=== PATIENT | female | born 1980 | race Caucasian/White ===

== ENCOUNTER 2018-08-24 13:07 | Emergency (ER) | payer OTHER, SELFPAY ==
[2018-08-24 13:09] VITALS: BP 165/103; PULSE 86; RESP 15; TEMP 36.2; O2SAT 99; BMI 31.4
[2018-08-24 14:12] LABS: Mucous, Urine 0 SEEN /hpf (<or=2+); Red Blood Cells-Urine 0 SEEN /hpf (0-5); White Blood Cells 0 SEEN /hpf (0-5)
[2018-08-24 14:14] LABS: Color, Urine Yellow (Yellow); Glucose, Dipstick Normal (Normal); Ketone-Dipstick Negative (Negative); Leukocyte Esterase-Dipstick Negative /ul (Negative); Nitrite-Dipstick Negative (Negative); Occult Blood-Urine Negative /ul (Negative); Protein-Dipstick Negative (Negative); Urine Bilirubin Dipstick Negative (Negative); Urine Clarity Clear (Clear); Urine Urobilinogen Normal (Normal)
[2018-08-24 14:17] LABS: Internal QC Validated? YES +Cl - CLEAR BKGD; Pregnancy, Urine Negative Negative
[2018-08-24 14:18] LABS: Bacteria RARE /hpf (None Seen); Squamous Epithelial Cells - UA 0-5 SEEN /hpf (5-10)
[2018-08-24 15:04] VITALS: BP 169/103
--- NOTE | 2018-08-24 15:38 | CT_ITS ---
STUDY: CT ABDOMEN AND PELVIS WITH CONTRAST REASON FOR EXAM: Female, 38 years old. Lower abdominal spasms when urinating RADIATION DOSAGE (If Supplied By Facility): CTDIvol = ( 15.3 ) mGy, DLP = ( 1139.03 ) mGycm TECHNIQUE: Transaxial images were obtained from the dome of the diaphragm to the symphysis pubis without oral contrast. 100CC ml of Isovue 300 contrast was administered. Sagittal and coronal images were reconstructed. Individualized dose optimization techniques were used for this CT. COMPARISON: None. FINDINGS: The visualized lung bases are unremarkable. The visualized portions of the heart are within normal limits. Normal liver. Normal gallbladder and extrahepatic biliary system. Normal spleen. Normal pancreas. Normal bilateral adrenal glands. Normal right kidney. Normal left kidney. Normal visualized stomach. Normal small intestine. Normal colon. There are surgical clips in the region of the appendix consistent with a prior appendectomy. Normal abdominal aorta. Normal inferior vena cava. Normal retroperitoneum. Normal urinary bladder. The uterus appears within normal limits. There is a 2.1 x 3.1 cm right ovarian cyst. A small amount of free fluid is seen in the deep pelvis. Normal abdominal wall. Normal osseous structures. CT/Abdomen/Pelvis W IV Cont ONLY IMPRESSION: 1. Surgical clips seen in the region of the appendix consistent with prior appendectomy. 2. There is a 2.1 x 3.1 cm right ovarian cyst. 3. There is a small amount of free fluid in the deep pelvis. This may be physiologic. Electronically Signed: Jonathon Schulz MD at 16:55 EST , Service support ,
[2018-08-24] MEDS: Ondansetron 4 MG/2 ML Vial IV (16:01)
[2018-08-24] MEDS: Ketorolac 30 MG/ML Syringe IV (16:01)
[2018-08-24] MEDS: 0.9% Normal Saline 1,000 ML 150 ML IV (16:01)
[2018-08-24 16:16] LABS: Absolute Lymphocyte Count 2.22 X10^3/ul (0.83-4.51); Absolute Neutrophil Count 6.3 X10^3/uL (2.0-7.7); Basophil# 0.03 X10^3/uL; Basophil% 0.3 % (0-1); Eosinophil# 0.11 X10^3/uL; Eosinophils% 1.2 % (0-5); Hematocrit 43.7 % (37-47); Hemoglobin 14.7 g/dl (12.0-15.0); Lymphocyte # 2.22 X10^3/ul (4.0); Lymphocyte % 23.9 % (19-41); Mean Corp Hgb Conc 33.6 g/gl (32-36); Mean Corpuscular Hgb 31.7 pg (27.0-32.0); Mean Corpuscular Volume 94.4 fL (81-99); Mean Platelet Vol. 10.9 fl (6.2-12.0); Monocyte# 0.61 X10^3/uL; Monocyte% 6.6 % (0-10); Neutrophil # 6.32 X10^3/uL (2.7-7.7); Neutrophil % 67.9 % (47-70); Platelet Count 228 K/mm3 (150-450); RBC Distribution Width CV 13.1 % (11.6-14.6); RBC Distribution Width SD 44.8 fl (35.1-43.9); Red Blood Count 4.63 M/mm3 (4.2-5.4); White Blood Count 9.3 K/mm3 (4.4-11.0)
[2018-08-24 16:20] LABS: POSITIVE COUNT NO; POSITIVE DIFFERENTIAL NO; POSITIVE MORPHOLOGY NO
[2018-08-24 16:22] LABS: Anion Gap 6 (5-15); BUN 8 mg/dL (7-18); BUN/Creat Ratio 13.2 RATIO (10-20); Calcium,Total 9.5 mg/dL (8.5-10.1); Chloride 103 mmol/L (98-107); Creatinine, Serum 0.61 mg/dL (0.55-1.02); EST Glomerular Filtration Rate 117 mL/min (>60); Est Glom Filt Rate - Afr Amer 142 mL/min (>60); Estimated Creatinine Clearance 126.14 ml/min; Glucose 88 mg/dL (74-106); Potassium 3.7 mmol/L (3.5-5.1); Sodium Level 135 mmol/L (136-145)
--- NOTE | 2018-08-24 17:08 | ED.VISSUMM ---
- ER Visit Summary Date of Service: 08/24/18 Chief Complaint: Abdominal spasms History of Present Illness: The patient is a 38 F with abdominal spasms with urination or bowel movement since yesterday. She reports mild chills but no fever. She denies back pain. Patient has had prior appendectomy. Physical Examination: Vital signs significant for blood pressure of 169/103, otherwise unremarkable. Head neck examination is unremarkable. Heart is regular rate and rhythm. Lung sounds are clear. Abdomen is soft with suprapubic and left lower quadrant tenderness. No guarding or rebound. Hypoactive bowel sounds are noted. Back examination reveals no CVA tenderness. Test Results: CBC and chemistry studies unremarkable. Urinalysis unremarkable. test negative. CT abdomen pelvis with IV contrast reveals a 2.1 x 3.1 cm right ovarian cyst. There is a small amount of free fluid in the pelvis. Emergency Department Course and Treatment: Patient was given IV fluids here. Test results were discussed with the patient. She will use Tylenol or ibuprofen at home and follow-up with MAT TESTER as needed. Treatment Plan: [] Disposition: Discharge Impression: Right ovarian cyst This note was generated with [employer] dictation software. It may contain incorrect words, spelling, and punctuation that were not noted in review of the chart prior to signing ED Disposition - Plan for ED Patient: Chief Complaint: Other, Pain/Inj Referrals: Care Physician,No Primary [Primary Care Provider] -
--- NOTE | 2018-08-24 17:09 | ED.DEP ---
ED Disposition - Plan for ED Patient: Disposition: Home or Assisted Living Chief Complaint: Other, Pain/Inj Instructions: ED Cyst Ovarian Referrals: Maria Del Carmen Edwards CNM [Certified Nurse Architecture Department Chair] - As Needed
== END 2018-08-24 17:16 | disposition home or self-care (01) ==
PROVIDERS: Emergency Provider Emergency Medicine
DX: N83.201 Unspecified ovarian cyst, right side (principal)
CPT/HCPCS: 74177; 80048; 81001; 81025; 85025; 96361; 96374; 96375; 99283; J7030; Q9967; A4216; J2405

== ENCOUNTER 2019-08-26 10:09 | Day surgery (SDC) | payer OTHER, SELFPAY ==
--- NOTE | 2019-08-10 18:05 | HP.PCM_ITS ---
History and Physical Date of Admission: 08/26/19 Marilin Zelaya is a 39 year old female who presents for problem visit ??for ?discussion of AUB. ? HPI:?39-year-old female originally presented for preop today for consultation for bilateral salpingectomy. ?However, she also mentioned that her menses have become heavier, and more bothersome. ?She is bleeding through protection. ?They're very heavy for a day or 2, and they're lasting 7 or 8 days total. ?They are fairly regular. ?She's having some cramping as well. ? PAST?MEDICAL?HISTORY PAST MEDICAL HISTORY Diagnosis Date ? Ostium secundum type atrial septal defect ? PAST?SURGICAL?HISTORY PAST SURGICAL HISTORY Procedure Laterality Date ? APPENDECTOMY ? 12/2015 ? D&C, DIAG AND/OR THERAPEUTIC ? 1998 ? Dilation & curettage, X-2 ? PAST SURGICAL HISTORY OF ? 1993 ? open heart/close hole defect in heart FAMILY?HISTORY FAMILY HISTORY Problem Relation Age of Onset ? other (mva) Mother ? ? Heart Maternal Grandmother ?IN, Small ? Hypertension Maternal Grandmother ? ? Breast Cancer Maternal Aunt ?Great Aunt ? Emphysema Maternal Uncle ?Great Uncle SOCIAL?HISTORY Social History ??Socioeconomic History ?Marital status: ?Spouse name: Adam ?Number of children: 3 ?Years of education: 14 ?Highest education level: Not on file ??Occupational History ?Occupation: Homemaker ?Occupation: CLAIM BENEFIT SPECIALIST ?Employer: [employer] ??Social Needs ?Financial resource strain: Not on file ?Food insecurity: ?Worry: Not on file ?Inability: Not on file ?Transportation needs: ?Medical: Not on file ?Non-medical: Not on file ??Tobacco Use ?Smoking status: Never Smoker ?Smokeless tobacco: Never Used ??Substance and Sexual Activity ?Alcohol use: Yes ?Comment: Occasionally ?Drug use: No ?Sexual activity: Yes ?Partners: Male ? control/protection: None ??Lifestyle ?Physical activity: ?Days per week: Not on file ?Minutes per session: Not on file ?Stress: Not on file ??Relationships ?Social connections: ?Talks on phone: Not on file ?Gets together: Not on file ?Attends methodist service: Not on file ?Active member of club or organization: Not on file ?Attends meetings of clubs or organizations: Not on file ?Relationship status: Not on file ?Intimate partner violence: ?Fear of current or ex partner: Not on file ?Emotionally abused: Not on file ?Physically abused: Not on file ?Forced sexual activity: Not on file ??Other Topics ?Concerns: ?Not on file ??Social History Narrative ?Not on file CURRENT?MEDICATIONS ? No current outpatient medications on file. No current facility-administered medications for this visit.? Allergies As of Date: 08/10/2019 (No Known Allergies) Fully Assessed ?08/10/2019 ? ? REVIEW OF SYSTEMS Heme: No history of prolonged bleeding or easy bruising? ? Allergies and current medication updated:Yes ? EXAM:?BP 132/86 Ht 5' 7.5 (1.72m) Wt 205 lb (93.0kg) LMP 08/07/2019 BMI 31.62 kg/(m^2).? GENERAL:?pleasant, ?female in no apparent distress ? ASSESSMENT AND PLAN:?? Encounter Diagnosis ? ? ICD-10-CM ? 1. Menorrhagia with regular cycle N92.0 PELVIC US WHI ? ? ENDOMETRIAL BIOPSY PROCEDURE (W NOTE) I discussed with the patient risks benefits and alternatives to various options for her menorrhagia. ?I discussed with her I would recommend an endometrial biopsy and pelvic ultrasound to complete the evaluation. ?We reviewed options of?hormonal options, transexemic acid,?Mirena intrauterine system, or endometrial ablation. ?Patient is very interested in endometrial ablation and she does not desire to be on hormones. ?Patient is currently having menstrual bleeding, we will defer endometrial biopsy today week. ?This H&P was performed in my office on 08/10/19. Cayla Porter MD
[2019-08-26] VITALS (7 sets, daily range): BP systolic 140–159; BP diastolic 77–96; PULSE 68–84; RESP 16–20; TEMP 36.3–37.3; O2SAT 94–100; BMI 31.6
--- NOTE | 2019-08-26 | FALS_PTH ---
PATIENT: CHRISSY GARDNER LOC: [facility] [place] U#:[id number] AGE/SX: 39/F ROOM: RE08/26/[address]: Dr. Cayla Porter MD : 1980 BED: DIS: 08/26/2019 SPEC #: [id number] RECD: 08/26/19 13:16 STATUS: LINDA ROGER #: [id number] MARY ANNE: 08/26/19 00:[address]: Cayla Porter DEPT: SURGICAL PATHOLOGY RECD BY: Zhen Brown ENTERED: 08/26/19 13:16 SP TYPE: FALL TUBES OTHR DR: No Primary Care Phys Tissues: Fallopian tube Procedures: Surgery Specimen Level II HEADER OPERATION: Laparoscopic salpingectomy PRE-OP DIAGNOSIS: Sterilization TISSUE SUBMITTED: Bilateral fallopian tubes MICROSCOPIC DIAGNOSIS Right and left fallopian tubes, bilateral partial salpingectomies: Two complete segments of fallopian tubes with no pathologic change. AM:eduardo 08/27/19 MICROSCOPIC DESCRIPTION Slides are reviewed. GROSS DESCRIPTION Received in fixative is one container labeled with the patient's name and designated bilateral fallopian tubes. The specimen consists of four segments of fallopian tube measuring 4 cm in length and 0.6 cm in diameter and 4.5 cm in length and 0.5 cm in diameter. The smaller detached segments consist of fimbrial end measuring 2.5 x 1.5 x 0.5 cm and 2.5 x 1.5 x 0.5 cm. Box Sealing Machine Catcher sections from all four pieces are submitted in two cassettes. / MARIANA:eduardo 08/26/19 TC:4 CPT: 28585 x2
[2019-08-26 10:40] LABS: Hematocrit 38.4 % (37-47); Hemoglobin 12.9 g/dL (12.0-15.0); Mean Corp Hgb Conc 33.6 g/dL (32-36); Mean Corpuscular Hgb 31.9 pg (27.0-32.0); Mean Corpuscular Volume 94.8 fL (81-99); Mean Platelet Vol. 10.7 fl (6.2-12.0); Platelet Count 186 K/mm3 (150-450); RBC Distribution Width CV 12.7 % (11.6-14.6); RBC Distribution Width SD 44.1 fl (35.1-43.9); Red Blood Count 4.05 M/mm3 (4.2-5.4); White Blood Count 6.2 K/mm3 (4.4-11.0)
[2019-08-26 10:43] LABS: Internal QC Validated? YES +Cl - CLEAR BKGD; Pregnancy, Urine Negative Negative
[2019-08-26] MEDS: Celecoxib 200 MG Capsule 400 MG PO ×2 (11:12→11:15)
[2019-08-26] MEDS: Gabapentin 400 MG Capsule PO (11:12)
[2019-08-26] MEDS: Acetaminophen 500 MG Tablet 1000 MG PO (11:12)
[2019-08-26] MEDS: Lactated Ringers 1,000 ML 100 ML IV (11:22)
[2019-08-26] MEDS: Bupivacaine Mpf 0.5% 30 ML VIAL (11:44)
--- NOTE | 2019-08-26 12:51 | DCINST_ITS ---
Discharge Diet: No Restrictions - Increase fluid intake for the next 48 hours. Discharge Activity: Return to Normal Activity, May Drive - when you are no longer taking pain/narcotic meds., May Shower, May Take a Tub Bath - in 14 days Return to work on:: 08/30/19 May shower in (days): 1 May resume sexual activity in: 2 weeks Additional Activity Instructions:: Ambulate often the next week after surgery. Nothing in the vagina for 5 days. Call your doctor if your incision/area has: Continuous Slow Oozing, Sudden Increased Bleeding, Increased Pain/ Swelling, Increased Redness, Foul Smelling Discharge Call your doctor if you observe: Fever of 101 or Higher, Using more than one pad per hour - for 2 hrs in a row Cleanse incision/area with: Soap & Water, - - your incisions have skin glue, it can get wet. Do not remove it, it will fall off Allergies/Adverse Reactions: Allergies No Known Allergies Allergy (Verified 08/26/19 11:01) Medications to take at Discharge Hydrocodone Bitart/Apap 5-325 [[place] 5/325] 1 tablet PO Q6H PRN PRN 2 Days #5 tablet 08/26/19 Ibuprofen [Motrin] 800 mg PO TID PRN PRN #60 tab 08/26/19 The following prescriptions were given: Ibuprofen [Motrin] 800 mg PO TID PRN PRN #60 tab PRN Reason: Pain Transmission Status: Pending to [id number] Hydrocodone Bitart/Apap 5-325 [[place] 5/325] 1 tablet PO Q6H PRN PRN 2 Days #5 tablet PRN Reason: Pain Score 6-10/10 Transmission Status: Sent to [facility] Primary Care Physician: Care Physician,No Primary [Primary Care Provider] - Test Results: Test results from this visit will be discussed in further detail at your follow- up appointment, if applicable. Please Follow Up With: Cayla Porter MD - [phone] When: in 2 weeks or as needed
--- NOTE | 2019-08-26 12:53 | PCM.OPRPT ---
Report of Operation Date of Procedure: 08/26/19 Pre-Operative Diagnosis: menorrhagia, sterilization request Post-Operative Diagnosis: same Surgery/Procedure Performed:: Laparoscopic bilateral salpingectomy and Hysteroscopy with Lyla endometrial ablation Description of Surgical Findings:: Normal uterus tubes and ovaries. Possible small powder burn type endometriosis lesion on the left ovary that was only a few millimeters in size, and possibly one in the posterior cul-de-sac that was 2 to 3 mm. Normal lush endometrium, normal cervix and vagina. camera systems engineer: bety garcia Type of Anesthesia:: General Anesthesiologist: Kai Mcgee Special Medications: none Specimen's removed: bilateral fallopian tubes Drains: none Estimated Blood Loss (mL): 10 Description of Procedure: The patient was taken to the operating room where she was prepped and draped in the dorsolithotomy position. A weighted speculum was placed in the vagina and the anterior lip of the cervix was grasped with a tenaculum. The Evy uterine manipulator was placed and the remainder of the instruments were removed from the vagina. Attention was turned to the abdomen. All port sites were infiltrated with 0.5% Marcaine before skin incisions were made. A 5 mm intraumbilical incision was made. The anterior abdominal wall was tented up with 2 towel clamps while a 5 mm blade less trocar and sleeve were directly inserted. Intraperitoneal placement was confirmed with the laparoscope. The pneumoperitoneum was created and the underlying abdominal contents were intact. The patient was placed in Trendelenburg. Right and left lower quadrant ports were placed under direct visualization lateral to the inferior epigastric vessels. The bowel was swept away and the above findings were noted. The LigaSure device was used to clamp seal and transect the antimesenteric portions of the right tube to the cornual insertion of the uterus. The tube was amputated from the uterus and the pedicles were all confirmed to be hemostatic. The same procedure was performed on the contralateral side. The specimens were brought out through a 5 mm port. The pedicles were again examined and found to be hemostatic. The lateral ports were removed under direct visualization and no active bleeding was noted. The pneumoperitoneum was released. The skin incisions were closed with Monocryl suture in a subcuticular fashion and skin glue. Tension was then turned to the vaginal portion of the case. The weighted speculum was placed in the vagina and the anterior lip of the cervix was grasped with a single-tooth tenaculum. The cervix was dilated serially with Hegar dilators. The 5mm hysteroscope was placed into the uterine cavity and the above findings were noted. Bilateral tubal ostia were identified. The uterus sounded to 10.5 cm and the cervical length was 4.cm. The endometrial cavity length was 5.5cm. The hysteroscope was removed. The Lyla device was set to 5.5cm. The instrument was then seated into the endometrial cavity and the indicator was in the green. The cervical seal balloon was inflated and the uterine integrity test was passed. The ablation procedure was initiated and completed without interruption. During the ablation procedure gentle traction was held on the tenaculum and the Lyla device was held up against the uterine fundus. When the ablation procedure was completed the Lyla was removed. The tenaculum was removed and the tenaculum site was noted to be hemostatic. All sponge and needle counts were correct. A vaginal sweep was performed by me. The patient was awakened and taken to the recovery room in stable condition. Hysteroscopic ins: 200cc normal saline Hysteroscopic outs:200cc Findings: Endometrial cavity: Normal, no fibroids or polyps noted Cervix: Normal Vagina: Normal the vaginal instruments were removed and the vaginal sweep was completed by me. The procedure was performed by me with assistance other than as dictated above. All sponge and needle counts were correct and the patient was taken to the recovery room in stable condition. Grafts/Implants Used: none - Complications None - Admit VTE Documentation VTE Present on Admission: No VTE Mechan Device Prophylaxis: SCD's VTE Pharm Prophylaxis ordered?: No Reason prophylaxis not ordered:: Procedure Not Indicated
[2019-08-26] MEDS: HYDROcodone Bitartrate/Apap 5/325 Tablet PO (14:26)
== END 2019-08-26 14:35 | disposition home or self-care (01) ==
LOC: SDC 10:10 → AC 10:11
PROVIDERS: Referring Provider Obstetrics & Gynecology; Visit Provider Obstetrics & Gynecology
PROC: 0U5B8ZZ Destruction of Endometrium, Via Natural or Artificial Opening Endoscopic (ICD-10-PCS; CPT 58558; principal; 2019-08-26 11:40)
PROC: (CPT 58661; 2019-08-26 11:40)
DX: N93.9 Abnormal uterine and vaginal bleeding, unspecified (principal); Z30.2 Encounter for sterilization
CPT/HCPCS: 00952; 58563; 58661; 36415; 81025; 85027; 88302; J7120; J2405